=== PATIENT | male | born 1950 | race African-American/Black ===

== ENCOUNTER → 2017-12-14 | Outpatient (CLI) | payer MEDICARE ==
--- NOTE | 2017-12-14 11:39 | RAD ---
2 Views of the Chest 12/14/2017 2:00 AM Indication: Chest congestion Comparison: None Findings: No pneumothorax or pleural effusion is identified no focal infiltrate is seen. Dual-lead pacemaking device from a subclavian approach noted. Heart size is normal. Bony thorax is intact. Impression: No radiographic evidence of acute abnormality
--- NOTE | 2017-12-14 11:41 | RAD ---
4 views of the paranasal sinuses 12/14/2017 Indication: Chest and sinus congestion Comparison study: None Findings: No evidence of acute fluid level or mucosal thickening is seen throughout the paranasal sinuses. No fractures or other acute osseous abnormalities are identified. Impression: No radiographic evidence of sinusitis
== END | disposition home or self-care (01) ==
LOC: RAD 11:13
PROVIDERS: ATTEND Internal Medicine Cardiovascular Disease
DX: R09.81 Nasal congestion (principal)
CPT/HCPCS: 70220; 71046